=== PATIENT | female | born 1975 | race Caucasian/White ===

== ENCOUNTER → 2016-12-30 | Outpatient (CLI) | payer BC ==
[~2016-12-30] MED LIST: EPP3/2 IM; LEVO125T72 PO
--- NOTE | 2016-12-30 16:57 | MAMMOGRAPHY REPORT ---
BILATERAL DIGITAL SCREENING MAMMOGRAM TOMOSYNTHESIS WITH CAD: 12/30/2016 CLINICAL HISTORY: Routine screening. Patient has no complaints. TECHNIQUE: Breast tomosynthesis in addition to standard 2D mammography was performed. Current study was also evaluated with a Computer Aided Detection (CAD) system. COMPARISON: Comparison is made to exams dated: 12/26/2015 mammogram - [facility] an d 07/24/2008. BREAST COMPOSITION: The tissue of both breasts is heterogeneously dense, which may obscure small ma sses. FINDINGS: No suspicious masses, calcifications, or areas of architectural distortion are noted in e ither breast. There has been no significant interval change compared to prior exams. IMPRESSION: ACR BI-RADS CATEGORY 1: NEGATIVE There is no mammographic evidence of malignancy. A 1 year screening mammogram is recommended. The p atient will receive written notification of the results. Approximately 10% of breast cancers are not detected with mammography. A negative mammographic repor t should not delay biopsy if a clinically suggestive mass is present. Melissa Carbajal M.D. ah/:12/30/2016 16:33:46 Electrical Construction Project Manager: Jahaira TATE(R)(Nicolas), [facility] letter sent: Normal 1/2 BI-RADS Code: ACR BI-RADS Category 1: Negative
== END | disposition home or self-care (01) ==
LOC: C.MAMM 11:26
PROVIDERS: ATTEND Family Medicine
DX: Z12.31 Encounter for screening mammogram for malignant neoplasm of breast (principal)

== ENCOUNTER → 2017-01-13 | Outpatient (CLI) | payer BC ==
--- NOTE | 2017-01-13 09:31 | DIAGNOSTIC IMAGING REPORT ---
ULTRASOUND KIDNEYS AND BLADDER CLINICAL HISTORY: Dorsalgia. Low back pain. COMPARISON STUDY: No priors. TECHNIQUE: Real-time, grayscale, and color flow sonography of the kidneys and bladder is performed. Images are reviewed in the transverse and longitudinal planes. FINDINGS: Kidneys: The kidneys are normal in size and echotexture. The right kidney measures 9.8 x 3.8 x 4.1 cm and the left kidney measures 9.9 x 5.3 x 4.8 cm. The left kidney is suboptimally visualized due to poor acoustic window. There is no hydronephrosis. A 6 mm nonobstructing calculus is suspected in the right lower pole. No left renal calculi are visualized. There is no sonographic evidence of contour deforming renal mass lesion. No perinephric fluid is identified. Bladder: The bladder is normal in appearance. Bilateral ureteral jets were seen. IMPRESSION: 1. The kidneys are normal in size and without hydronephrosis. 2. Suspect a nonobstructing right renal calculus. 3. The bladder was normal as visualized. Both ureteral jets were seen. Electronically signed by: Jose Hope M.D. 01/13/2017 9:29 AM Dictated Date/Time: 01/13/2017 9:28 AM
== END | disposition home or self-care (01) ==
LOC: C.ULTRBC 08:57
PROVIDERS: ATTEND Nurse Practitioner Family
DX: M54.5 Low back pain (principal)

== ENCOUNTER → 2017-01-14 | Outpatient (CLI) | payer BC ==
--- NOTE | 2017-01-14 10:56 | DIAGNOSTIC IMAGING REPORT ---
CT SCAN OF THE ABDOMEN AND PELVIS WITHOUT IV CONTRAST CLINICAL HISTORY: Left flank pain. COMPARISON STUDY: Renal ultrasound dated 01/13/2017. TECHNIQUE: CT scan of the abdomen and pelvis is performed from the lung bases to the proximal femora. Images are reviewed in the axial, sagittal, and coronal planes. IV contrast was not administered for this examination. Automated dose control exposure was utilized. CT DOSE: 386.02 mGy.cm FINDINGS: Lung bases: The heart is normal in size and without pericardial effusion. The lung bases are clear. Liver: The unenhanced liver is normal in size, contour, and attenuation. There is no intrahepatic biliary ductal dilatation. Gallbladder: Unremarkable. Spleen: Normal in size and attenuation. Pancreas: Unremarkable. Adrenal glands: Unremarkable. Kidneys: The unenhanced kidneys are normal in size and without hydronephrosis. There is a punctate nonobstructing calculus in the left lower pole. A 5 mm nonobstructing calculus is seen in the right lower pole. No ureteral calculus is identified. There is no evidence of contour deforming renal mass lesion. Abdominal vasculature: The abdominal aorta is normal in course and caliber. Bowel: The small bowel and colon are normal in course and caliber. The appendix is well-visualized and normal. Peritoneum: There is no intraperitoneal free air or abdominal ascites. There is a fat-containing umbilical hernia. Lymphadenopathy: None. Pelvic viscera: The bladder is decompressed and not well assessed. The uterus and adnexa are normal as visualized. There are bilateral ovarian follicles. Skeletal structures: No lytic or blastic lesions are seen. A hemitransitional left lumbosacral segment is incidentally noted. IMPRESSION: 1. There are no acute infectious or inflammatory findings in the abdomen or pelvis. 2. There are small bilateral nonobstructing renal calculi as above Electronically signed by: Jose Hope M.D. 01/14/2017 10:54 AM Dictated Date/Time: 01/14/2017 10:49 AM
== END | disposition home or self-care (01) ==
LOC: C.CTS 10:38
PROVIDERS: ATTEND Urology
DX: N20.0 Calculus of kidney (principal)

== ENCOUNTER 2021-07-26 02:50 | Inpatient (IN) ==
[2021-07-26] MEDS ORDERED: ONDANSETRON INJ 2 MG/ML 2 ML VIAL IV STA ×2 (03:00→04:01)
[2021-07-26 03:22] LABS: Basophils # (auto) 0.06 K/uL (0-0.2); Basophils % (auto) 0.7 %; Eosinophils # (auto) 0.23 K/uL (0-0.5); Eosinophils % (auto) 2.6 %; Hematocrit (blood only) 44.9 % (37-47); Hemoglobin 15.1 g/dL (12.0-16.0); Immature Granulocytes # (auto) 0.03 K/uL (0.00-0.02); Immature Granulocytes % (auto) 0.3 %; Lymphocytes # (auto) 2.28 K/uL (1.2-3.4); Mean Corpuscular Hemoglobin 29.9 pg (25-34); Mean Corpuscular Hgb Conc 33.6 g/dL (32-36); Mean Corpuscular Volume 88.9 fL (80-100); Mean Platelet Volume 10.3 fL (7.4-10.4); Monocytes % (auto) 6.8 %; Neutrophils # (auto) 5.57 K/uL (1.4-6.5); Neutrophils % (auto) 63.6 %; Platelet Count 260 K/uL (130-400); RDW Coefficient of Variation 15.7 % (11.5-14.5); RDW Standard Deviation 50.9 fL (36.4-46.3); Red Blood Count 5.05 M/uL (4.2-5.4); White Blood Count 8.77 K/uL (4.8-10.8)
[2021-07-26 03:39] LABS: Appearance Urine Turbid (Clear); Bacteria Urine Automated Negative (Negative); Bilirubin Urine Negative (Negative); Blood Urine 3+ (Negative); Color Urine Red; Epithelial Cell Urine Auto >30 /lpf (0-5); Glucose Urine UA Negative (Negative); Ketones Urine Trace (Negative); Leukocyte Esterase Urine Negative (Negative); Nitrite Urine Negative (Negative); Protein Urine 2+ (Negative); RBC Urine Automated >30 /hpf (0-4); Specific Gravity Urine 1.023 (1.000-1.030); Urobilinogen Urine Negative (Negative); pH Urine 5.5 (4.5-7.5)
[2021-07-26 03:40] LABS: Albumin Level 3.7 gm/dl (3.4-5.0); BUN Creatinine Ratio 13.2 (10-20); Calcium 9.1 mg/dl (8.5-10.1); Creatinine Clr Calc Pharmacy 65.2 ml/min; Est GFR (African American) 77.3 ml/min; Est GFR (Non-African American) 66.7 ml/min; Potassium 3.6 mmol/L (3.5-5.1)
[2021-07-26 03:43] LABS: Bilirubin,Total 0.2 mg/dl (0.2-1); Globulin 3.7 gm/dl (2.5-4.0); Total Protein 7.4 gm/dl (6.4-8.2)
[2021-07-26 03:59] LABS: Calcium Oxalate Crystals Urine Present (None Prsent)
[2021-07-26 04:01] LABS: Cast Urine Automated 0 /lpf (0-5); Mucus Urine Present (None Prsent)
[2021-07-26] MEDS ORDERED: MoRPHine SULFATE 4 MG/ML 1 ML CARP\\VIAL IV PRN (04:01)
[2021-07-26] MEDS ORDERED: KETOROLAC 30 MG/ML VIAL IV STA (04:01)
[2021-07-26] MEDS ORDERED: SODIUM CHLORIDE 0.9% 1000ML 1,000 ML IV SCH ×2 (04:15→12:23)
[2021-07-26 04:20] LABS: Pregnancy Test, Urine Negative (Negative)
[2021-07-26 04:27] LABS: Thyroid Stimulating Hormone 2.11 uIu/ml (0.300-4.500)
--- NOTE | 2021-07-26 07:01 | Emergency Department Note ---
History of Present Illness General Chief complaint: Abdominal Pain Stated complaint: EXTREME CRAMPING, PAIN BELOW BELLY BUTTON Time Seen by Provider: 07/26/21 03:53 History of Present Illness Maximum Pain Intensity: 1 This is a 46-year-old female presenting to the emergency department for evaluation of extreme pain in her right side and lower abdomen. The patient states that her symptoms woke her from sleep around 1 AM. She does have vomiting because of the extreme amount of pain. The patient is usually healthy with a history of hypothyroidism. No abdominal surgical history. She has had kidney stones in the past, but this feels different. She is vaccinated against Covid. She rates her discomfort a colicky 04/29. Home Medications Medication Instructions Recorded Confirmed Type Iron Infusion 1 bag IV UD 07/26/21 07/26/21 History cephalexin 500 mg capsule 500 mg PO BID 3 Days #6 cap 07/26/21 Rx cetirizine 10 mg tablet (Zyrtec) 10 mg PO DAILY PRN 07/26/21 07/26/21 History docusate sodium 100 mg capsule 100 mg PO BID #20 cap 07/26/21 Rx (Col-Rite) geriatric [id number] 1 tab PO QAM 07/26/21 07/26/21 History levothyroxine 125 mcg tablet 125 mcg PO DAILYBB 07/26/21 07/26/21 History (Synthroid) oxybutynin chloride 5 mg 5 mg PO DAILY #30 tab 07/26/21 Rx tablet,extended release 24 hr tamsulosin 0.4 mg capsule (Flomax) 0.4 mg PO DAILY #30 cap 07/26/21 Rx Allergies Allergy/AdvReac Type Severity Reaction Status Date / Time bee venom protein (honey bee) Allergy Intermediate ANAPHYLAXIS Verified 07/26/21 07:20 Sulfa (Sulfonamide Allergy Intermediate hives Verified 07/26/21 07:20 Antibiotics) Past Med/Surg History Medical History Chronic allergic rhinitis Hypothyroid Kidney stone Surgical History No significant past surgical history Social History Smoking Status: Never smoker Second Hand Exposure: No; Hx Alcohol Use: Yes Alcohol type: wine Hx Substance Use: No Preferred Language: Kiswahili Communication Ability: Effective [employer] Required: No Beliefs That Will Affect Care: None Current Living Situation: Spouse Feels Safe at Home: Yes Assistive Devices: Glasses Review of Systems A total of 10 systems reviewed and were otherwise negative Physical Exam Vital Signs Vital Signs - 24 hr 07/26/21 02:54 07/26/21 04:42 07/26/21 06:19 Temperature 36.5 C Temperature Source Temporal Artery Scan Pulse Rate 62 Pulse Rate [Apical] Pulse Rate [Finger] 69 72 Pulse Rhythm Regular Pulse Rhythm [Apical] Pulse Rhythm [Finger] Pulse Strength Normal Pulse Strength [Finger] Respiratory Rate 18 18 18 Respiratory Effort / Characteristics Non-Labored Spontaneous Non-Labored Spontaneous Non-Labored Spontaneous Respiratory Depth Normal Normal Normal Respiratory Pattern Regular Blood Pressure [Left Arm] Blood Pressure [Right Arm] 129/84 115/74 Blood Pressure Mean [Left Arm] Blood Pressure Mean [Right Arm] 99 87 Blood Pressure Position Sitting Blood Pressure Position [Left Arm] Blood Pressure Position [Right Arm] Lying Lying Pulse Oximetry 98 99 99 Oxygen Delivery Method Room Air Room Air Room Air Oxygen Flow Rate Sepsis Recent Fever Within 48 Hours No Sepsis New/Unexplained Change in Mental Status N/A Sepsis Action Taken by Nursing No Action Required 07/26/21 07:35 07/26/21 09:30 07/26/21 11:08 Temperature 36.4 C L Temperature Source Temporal Artery Scan Pulse Rate Pulse Rate [Apical] 77 Pulse Rate [Finger] 64 70 Pulse Rhythm Pulse Rhythm [Apical] Regular Pulse Rhythm [Finger] Regular Regular Pulse Strength Pulse Strength [Finger] Normal Normal Respiratory Rate 18 18 21 Respiratory Effort / Characteristics Non-Labored Spontaneous Non-Labored Spontaneous Non-Labored Spontaneous Respiratory Depth Normal Normal Normal Respiratory Pattern Regular Regular Regular Blood Pressure [Left Arm] 107/72 Blood Pressure [Right Arm] 122/84 118/80 Blood Pressure Mean [Left Arm] 83 Blood Pressure Mean [Right Arm] 96 92 Blood Pressure Position Blood Pressure Position [Left Arm] Lying Blood Pressure Position [Right Arm] Sitting Sitting Pulse Oximetry 99 100 97 Oxygen Delivery Method Room Air Room Air Oxymask Oxygen Flow Rate 7 Sepsis Recent Fever Within 48 Hours Sepsis New/Unexplained Change in Mental Status Sepsis Action Taken by Nursing 07/26/21 11:15 07/26/21 11:25 07/26/21 11:35 Temperature 36.3 C L Temperature Source Temporal Artery Scan Pulse Rate Pulse Rate [Apical] 73 68 69 Pulse Rate [Finger] Pulse Rhythm Pulse Rhythm [Apical] Regular Regular Regular Pulse Rhythm [Finger] Pulse Strength Pulse Strength [Finger] Respiratory Rate 17 13 12 Respiratory Effort / Characteristics Non-Labored Spontaneous Non-Labored Spontaneous Non-Labored Spontaneous Respiratory Depth Normal Normal Normal Respiratory Pattern Regular Regular Regular Blood Pressure [Left Arm] 120/70 109/79 136/85 Blood Pressure [Right Arm] Blood Pressure Mean [Left Arm] 86 89 102 Blood Pressure Mean [Right Arm] Blood Pressure Position Blood Pressure Position [Left Arm] Lying Lying Lying Blood Pressure Position [Right Arm] Pulse Oximetry 97 95 99 Oxygen Delivery Method Room Air Room Air Room Air Oxygen Flow Rate Sepsis Recent Fever Within 48 Hours Sepsis New/Unexplained Change in Mental Status Sepsis Action Taken by Nursing 07/26/21 11:44 07/26/21 11:45 Temperature 36.7 C Temperature Source Oral Pulse Rate Pulse Rate [Apical] Pulse Rate [Finger] 69 Pulse Rhythm Pulse Rhythm [Apical] Pulse Rhythm [Finger] Pulse Strength Pulse Strength [Finger] Respiratory Rate 16 Respiratory Effort / Characteristics Non-Labored Spontaneous Respiratory Depth Normal Respiratory Pattern Blood Pressure [Left Arm] 112/77 Blood Pressure [Right Arm] Blood Pressure Mean [Left Arm] 88 Blood Pressure Mean [Right Arm] Blood Pressure Position Blood Pressure Position [Left Arm] Lying Blood Pressure Position [Right Arm] Pulse Oximetry 100 Oxygen Delivery Method Room Air Room Air Oxygen Flow Rate Sepsis Recent Fever Within 48 Hours Sepsis New/Unexplained Change in Mental Status Sepsis Action Taken by Nursing VITALS: Vitals are noted on the nurse's note and reviewed by myself. Vital signs stable. GENERAL: Well-developed, well-nourished, white female who appears moderately uncomfortable on exam. Patient is cooperative with the examination. HEAD: Normocephalic atraumatic. NECK: Supple without nuchal rigidity. No lymphadenopathy. No thyromegaly. Cervical spine is nontender. HEART: Regular rate and rhythm without murmurs gallops or rubs. LUNGS: Clear to auscultation bilaterally without wheezes, rales or rhonchi. No retractions or accessory muscle use. ABDOMEN: Positive normal bowel sounds x 4. Soft, nontender, without masses or organomegaly. No guarding or rebound tenderness. No CVA tenderness. MUSCULOSKELETAL: No muscle atrophy, erythema, or edema noted. Full range of motion in all extremities. NEURO: Patient was alert and oriented to person place and time. CN II through XII grossly intact. Course Administered Medications Discontinued Medications Diatrizoate Meglumine (Diatrizoate Meglumine 30% 100ml Vial) 10 ml INSTIL UD PRN PRN Reason: radiology Stop: 07/30/21 11:00 Last Admin: 07/26/21 11:02 Dose: 10 ml Documented by: [id number] Sodium Chloride (Nss 1000ml) 1,000 mls @ 999 mls/hr IV .Q1H1M TARIQ Stop: 07/26/21 05:15 Last Infusion: 07/26/21 05:28 Dose: 0 mls/hr Documented by: [id number] Admin: 07/26/21 04:13 Dose: 999 mls/hr Documented by: [id number] Cefazolin Sodium (Ancef 1000mg) 1,000 mg in 7.5 mls @ 2.5 mls/min IV PREOP ONE Stop: 07/26/21 09:14 Last Admin: 07/26/21 09:44 Dose: 2.5 mls/min Documented by: [id number] Sodium Chloride (Nss 1000ml) 1,000 mls @ 200 mls/hr IV .Q5H TARIQ Stop: 08/25/21 12:22 Last Admin: 07/26/21 13:08 Dose: 200 mls/hr Documented by: [id number] Ketorolac Tromethamine (Ketorolac 30 Mg/Ml Vial) 30 mg IV NOW STA Stop: 07/26/21 04:02 Last Admin: 07/26/21 04:14 Dose: 30 mg Documented by: [id number] Morphine Sulfate (Morphine Sulfate 4 Mg/Ml 1 Ml Carp\Vial) 4 mg IV Q30M PRN PRN Reason: Pain Stop: 08/09/21 04:00 Last Admin: 07/26/21 04:14 Dose: 4 mg Documented by: [id number] Ondansetron HCl (Ondansetron Inj 2 Mg/Ml 2 Ml Vial) 4 mg IV NOW STA Stop: 07/26/21 03:01 Last Admin: 07/26/21 06:22 Dose: Not Given Documented by: [id number] Ondansetron HCl (Ondansetron Inj 2 Mg/Ml 2 Ml Vial) 4 mg IV NOW STA Stop: 07/26/21 04:02 Last Admin: 07/26/21 04:13 Dose: 4 mg Documented by: [id number] Scopolamine (Scopolamine 1 Mg Tdsy) 1 mg TD ONE ONE Stop: 07/26/21 11:18 Last Admin: 07/26/21 13:06 Dose: Not Given Documented by: [id number] Tamsulosin HCl (Tamsulosin Hcl 0.4 Mg Cap) 0.4 mg PO 1245 ONE Stop: 07/26/21 12:46 Last Admin: 07/26/21 13:08 Dose: 0.4 mg Documented by: [id number] Medical Decision Making Differential Diagnosis Differential diagnosis: Etiologies such as biliary colic, cholecystitis, hepatitis, pancreatitis, cardiac disease, pancreatitis, gastritis, peptic ulcer disease, appendicitis, cystitis, diverticulitis, mesenteric ischemia, inflammatory bowel disease, ileus, bowel obstruction, testicular/adnexal torsion, aortic pathology, shingles, as well as others were considered Laboratory Data Result diagrams: 07/26/21 03:05 07/26/21 03:05 Lab Results 07/26/21 07/26/21 07/26/21 Range/Units 03:05 03:05 03:13 WBC 8.77 (4.8-10.8) K/uL RBC 5.05 (4.2-5.4) M/uL Hgb 15.1 (12.0-16.0) g/dL Hct 44.9 (37-47) % MCV 88.9 (80-100) fL MCH 29.9 (25-34) pg MCHC 33.6 (32-36) g/dL RDW Std Deviation 50.9 H (36.4-46.3) fL RDW Coeff of Shashank 15.7 H (11.5-14.5) % Plt Count 260 (130-400) K/uL MPV 10.3 (7.4-10.4) fL Immature Gran % (Auto) 0.3 % Neut % (Auto) 63.6 % Lymph % (Auto) 26.0 % [place] % (Auto) 6.8 % Eos % (Auto) 2.6 % Baso % (Auto) 0.7 % Neut # (Auto) 5.57 (1.4-6.5) K/uL Lymph # (Auto) 2.28 (1.2-3.4) K/uL [place] # (Auto) 0.60 H (0.11-0.59) K/uL Eos # (Auto) 0.23 (0-0.5) K/uL Baso # (Auto) 0.06 (0-0.2) K/uL Immature Gran # (Auto) 0.03 H (0.00-0.02) K/uL Sodium 138 (136-145) mmol/L Potassium 3.6 (3.5-5.1) mmol/L Chloride 108 H (98-107) mmol/L Carbon Dioxide 23 (21-32) mmol/L Anion Gap 7.0 (3-11) BUN 13 (7-18) mg/dl Creatinine 1.01 (0.6-1.2) mg/dl Est Cr Clr Drug Dosing 65.2 ml/min Est GFR ( Amer) 77.3 ml/min Est GFR (Non-Af Amer) 66.7 ml/min BUN/Creatinine Ratio 13.2 (10-20) Glucose 120 H (70-99) mg/dl Calcium 9.1 (8.5-10.1) mg/dl Total Bilirubin 0.2 (0.2-1) mg/dl AST 19 (15-37) U/L ALT 37 (12-78) U/L Alkaline Phosphatase 53 (45-117) U/L Total Protein 7.4 (6.4-8.2) gm/dl Albumin 3.7 (3.4-5.0) gm/dl Globulin 3.7 (2.5-4.0) gm/dl Albumin/Globulin Ratio 1.0 (0.9-2) Lipase 158 (73-393) U/L TSH 2.110 (0.300-4.500) uIu/ml Urine Color Red Urine Appearance Turbid A (Clear) Urine pH 5.5 (4.5-7.5) Ur Specific [place] 1.023 (1.000-1.030) Urine Protein 2+ H (Negative) Urine Glucose (UA) Negative (Negative) Urine Ketones Trace H (Negative) Urine Blood 3+ H (Negative) Urine Nitrite Negative (Negative) Urine Bilirubin Negative (Negative) Urine Urobilinogen Negative (Negative) Ur Leukocyte Esterase Negative (Negative) Urine WBC (Auto) 10-30 H (0-5) /hpf Urine RBC (Auto) >30 H (0-4) /hpf U Hyaline Cast (Auto) 0 (0-5) /lpf U Epithel Cells (Auto) >30 H (0-5) /lpf Urine Bacteria (Auto) Negative (Negative) Calcium Oxalate Crystal Present A (None Prsent) Urine Mucus Present A (None Prsent) Urine Test (Negative) COVID-19 Eval Order SARS-CoV-2 (PCR) (Negative) 07/26/21 07/26/21 07/26/21 Range/Units 03:13 06:45 06:45 WBC (4.8-10.8) K/uL RBC (4.2-5.4) M/uL Hgb (12.0-16.0) g/dL Hct (37-47) % MCV (80-100) fL MCH (25-34) pg MCHC (32-36) g/dL RDW Std Deviation (36.4-46.3) fL RDW Coeff of Shashank (11.5-14.5) % Plt Count (130-400) K/uL MPV (7.4-10.4) fL Immature Gran % (Auto) % Neut % (Auto) % Lymph % (Auto) % [place] % (Auto) % Eos % (Auto) % Baso % (Auto) % Neut # (Auto) (1.4-6.5) K/uL Lymph # (Auto) (1.2-3.4) K/uL [place] # (Auto) (0.11-0.59) K/uL Eos # (Auto) (0-0.5) K/uL Baso # (Auto) (0-0.2) K/uL Immature Gran # (Auto) (0.00-0.02) K/uL Sodium (136-145) mmol/L Potassium (3.5-5.1) mmol/L Chloride (98-107) mmol/L Carbon Dioxide (21-32) mmol/L Anion Gap (3-11) BUN (7-18) mg/dl Creatinine (0.6-1.2) mg/dl Est Cr Clr Drug Dosing ml/min Est GFR ( Amer) ml/min Est GFR (Non-Af Amer) ml/min BUN/Creatinine Ratio (10-20) Glucose (70-99) mg/dl Calcium (8.5-10.1) mg/dl Total Bilirubin (0.2-1) mg/dl AST (15-37) U/L ALT (12-78) U/L Alkaline Phosphatase (45-117) U/L Total Protein (6.4-8.2) gm/dl Albumin (3.4-5.0) gm/dl Globulin (2.5-4.0) gm/dl Albumin/Globulin Ratio (0.9-2) Lipase (73-393) U/L TSH (0.300-4.500) uIu/ml Urine Color Urine Appearance (Clear) Urine pH (4.5-7.5) Ur Specific [place] (1.000-1.030) Urine Protein (Negative) Urine Glucose (UA) (Negative) Urine Ketones (Negative) Urine Blood (Negative) Urine Nitrite (Negative) Urine Bilirubin (Negative) Urine Urobilinogen (Negative) Ur Leukocyte Esterase (Negative) Urine WBC (Auto) (0-5) /hpf Urine RBC (Auto) (0-4) /hpf U Hyaline Cast (Auto) (0-5) /lpf U Epithel Cells (Auto) (0-5) /lpf Urine Bacteria (Auto) (Negative) Calcium Oxalate Crystal (None Prsent) Urine Mucus (None Prsent) Urine Test Negative (Negative) COVID-19 Eval Order Covid19 at [facility] SARS-CoV-2 (PCR) NEGATIVE (Negative) MDM Narrative Physical exam and history were performed. Nursing notes, EMR, and Medication List were personally reviewed. Patient appears to have very low abdominal pain with nausea and vomiting. The patient is quite uncomfortable on presentation. Urine was immediately available for review and may be consistent with kidney stone. IV access was established and labs were obtained. The patient was given IV Toradol, IV morphine, and IV Zofran. She was hydrated with normal saline and sent to CT scan for further evaluation. The patient's blood work is as above and was reviewed. She does not have a significantly elevated white blood cell count, gross anemia, bandemia, or significant electrolyte imbalance. Lipase and transaminases are not diagnostic. TSH shows euthyroid state. Urine is with blood, white cells, calcium oxalate, and mucus. Urine does not appear distinctly infectious. She is not . CT scan was reviewed by myself and radiology, and she does appear to have an obstructing 8 mm right ureteral calculi with hydronephrosis. This would clinically correlate with her symptoms. Covid was performed and negative. The case was discussed with the on-call hospitalist team, who will evaluate the patient here in the ER for further care management. Please see their dictation for further patient course, plan, and disposition. The chart was completed utilizing [employer] Speech Voice Recognition Software. Grammatical errors, random word insertions, pronoun errors, and incomplete sentences are an occasional consequence of this system due to software limitations, ambient noise, and hardware issues. Any formal questions or concerns about the content, text, or information contained within the body of this dictation should be directly addressed to the provider for clarification. . Impression & Plan Calculus of right ureter, Abdominal pain, Vomiting Discharge Plan Visit Data Chief Complaint: Abdominal Pain Stated Complaint: EXTREME CRAMPING, PAIN BELOW BELLY BUTTON ED Provider: Cherie Johnson ED Midlevel Provider: Franko Olivia Discharge Problem: Calculus of right ureter, Abdominal pain, Vomiting Patient Disposition: Home - Self-Care Discharge Instructions Interventions: ED Discharge Assessment Last Done: 07/26/21 10:00
--- NOTE | 2021-07-26 07:14 | CT Scan Report ---
ABDOMEN AND PELVIS CT WITHOUT CONTRAST CT DOSE: 457.52 mGy.cm HISTORY: Acute right-sided flank pain low abd pain TECHNIQUE: Multiaxial CT images of the abdomen and pelvis were performed without contrast. A dose lo wering technique was utilized adhering to the principles of ALARA. COMPARISON STUDY: CT abdomen and pelvis 01/14/2017 FINDINGS: The imaged inferior cardiac chambers are unremarkable. Clear lung bases. No pneumatosis or pneumoperitoneum. The unenhanced spleen, pancreas, adrenal glands, gallbladder and liver appear unrem arkable. Unremarkable left kidney. Moderate right-sided hydroureteronephrosis secondary to an obstruc ting 8 x 5 x 8 mm calculus of the right ureter at the level of S1. Decompressed urinary bladder. Unre markable uterus and adnexa. Aorta and IVC are unremarkable. No bowel obstruction or bowel wall thickening. Mild fecal retention. Normal appendix. Tiny fat filled periumbilical hernia. Unremarkable soft tissues. No acute fracture. IMPRESSION: 1. Moderate right-sided hydroureteronephrosis secondary to an obstructing 8 mm calculus of the right ureter at the level of S1. 2. No bowel obstruction or bowel wall thickening. Normal appendix. ACT 112: Negative or not required by law. The above report was generated using voice recognition software. It may contain grammatical, syntax o r spelling errors. Electronically signed by: Akhil Montgomery M.D. 07/26/2021 7:13 AM
--- NOTE | 2021-07-26 07:32 | Urology Consultation ---
Date of Consultation July 26, 2021 Assessment & Plan (1) Kidney stone: Patient is being admitted on the hospitalist service and we recommend proceeding as follows: Provide analgesics Provide antiemetics Provide IV fluid for hydration Keep the patient n.p.o. until seen by Dr. Paulson Consider adding Flomax for expulsive properties I discussed with the patient we can give her a trial of spontaneously passing the stone. If this is unsuccessful she may require cystoscopic intervention. Additional recommendations be forthcoming based on her clinical course as it unfolds Supervising Physician Co-Signing Physician Notes Discussed patient with LISS. Agree with plan. Saw patient personally. Counseled her on options including medical expulsive therapy versus stent placement today. Due to discomfort, patient would prefer stent. Consent obtained and patient marked. We will add on for nonemergent right ureteral stent placement today. Patient can likely go home afterwards and I will set up follow-up for definitive stone treatment. We will try to get this done before her planned robotic hysterectomy in early August. History of Present Illness Reason for Consultation: Nephrolithiasis History of Present Illness This 46-year-old female who developed right-sided flank pain earlier this morning which radiated to the front of her abdomen. She had associated nausea vomiting. She also noted some hematuria. She denies any dysuria urinary frequency. She denies any fevers, shakes, chills. Patient says that she has had a kidney stone in the past but it passed on its own and did not require any surgical intervention. Because the pain was unremitting she presented to the emergency department Patient did have labs and imaging which I dependently reviewed. CT scan of the abdomen and pelvis showed moderate right-sided hydronephrosis with an 8 mm obstructing kidney stone. Labs include a CBC her white blood cell count, hemoglobin, hematocrit, and platelet count are all within normal range. A chemistry profile showed sodium, potassium, BUN, and creatinine were all within normal range. Urinalysis showed 10-30 white blood cells per high-power field but was negative for leukocyte esterase and nitrites. There is also no bacteria noted. A Covid test has been performed and is pending. A test is noted to be negative. In the emergency department she was resting comfortably in bed at the time of my interview and was in no distress. Allergies Allergy/AdvReac Type Severity Reaction Status Date / Time bee venom protein (honey bee) Allergy Intermediate ANAPHYLAXIS Verified 07/26/21 07:20 Sulfa (Sulfonamide Allergy Intermediate hives Verified 07/26/21 07:20 Antibiotics) Home Medications Medication Instructions Recorded Confirmed Type Iron Infusion 1 bag IV UD 07/26/21 07/26/21 History cetirizine 10 mg tablet (Zyrtec) 10 mg PO DAILY PRN 07/26/21 07/26/21 History geriatric ahszpazg-sxjo-mzmi 1 tab PO QAM 07/26/21 07/26/21 History levothyroxine 125 mcg tablet 125 mcg PO DAILYBB 07/26/21 07/26/21 History (Synthroid) Patient History Medical History Kidney stone Surgical History No significant past surgical history Social History Smoking Status: Never smoker Preferred Language: [place]ian Feels Safe at Home: Yes Review of Systems Constitutional: no fever and no chills Eyes: no diplopia Ear, Nose, Mouth, Throat: no ear pain Respiratory: no cough and no dyspnea Cardiovascular: no chest pain Gastrointestinal: + nausea and + vomiting Genitourinary: + flank pain (Right sided) Musculoskeletal: + back pain (Right-sided flank pain) Integumentary: no rash Neurologic: no localized weakness Physical Exam Constitutional: well developed and well nourished; no acute distress Eyes: Wears glasses ENMT: Ears: no hearing impairment Neck: trachea midline Respiratory: normal respiratory effort; no respiratory distress and no labored breathing Cardiovascular: Rate/Rhythm: regular rate and regular rhythm Gastrointestinal (Abdomen): Soft, nontender, nondistended. No pain with palpation Musculoskeletal: No calf tenderness Skin: no rashes Neurologic: moves all extremities Psychiatric: A+Ox3, euthymic affect Results & Data ([facility]) Vital Signs (Past 12 Hours) Vital Signs Temp Pulse Pulse Resp BP Pulse Ox 07/26/21 06:19 72 18 115/74 99 07/26/21 04:42 69 18 129/84 99 07/26/21 02:54 36.5 C 62 18 98 PG Care Time/CCT Total # of Minutes Spent Total Time Spent with Patient: Total time spent is greater than 50% in coordination of care (as documented) at patient's floor/unit and/or counseling patient: Coding Level of Care Code 61133 Inpt Consult Level 5 Diagnoses Kidney stone N20.0
[2021-07-26] MEDS ORDERED: ceFAZolin 1000MG 1,000 MG/7.5 ML SYR IV ONE (09:12)
[2021-07-26] MEDS ORDERED: ePHEDrine sulfate 50 MG/ML AMP IV PRN (09:49)
[2021-07-26] MEDS ORDERED: MEPERIDINE HCL 25 MG/ML CARP/VIAL IV PRN (09:49)
[2021-07-26] MEDS ORDERED: ATROPINE SULFATE 0.1 MG/ML 10ML SYR IV PRN (09:49)
[2021-07-26] MEDS ORDERED: HYDROmorphone INJ 1 MG/ML SYRINGE IV PRN ×2 (09:49→12:23)
[2021-07-26] MEDS ORDERED: LABETALOL HCL IV 5 MG/ML 20ML IV PRN (09:49)
[2021-07-26] MEDS ORDERED: ONDANSETRON INJ 2 MG/ML 2 ML VIAL IV PRN ×3 (09:49→12:23)
[2021-07-26] MEDS ORDERED: fentaNYL citrate 100 MCG/2 ML VIAL IV PRN (09:49)
[2021-07-26] MEDS ORDERED: PHENYLEPHRINE 100MCG/ML 5ML SYR IV PRN (09:49)
--- NOTE | 2021-07-26 09:57 | Anesthesiology Consultation ---
Date of Service July 26, 2021 Assessment & Plan (1) Encounter for pre-operative examination: Chart Review Chart Review: Acceptable Risk for Surgery and Patient NOT seen in Pre Admission Testing Consults Requested none History Surgery Operation Date: 07/26/21 13:00 Proposed Procedures p Cystoscopy Retrograde(Right) - Phan Paulson MD s Ureteral Stent Insertion/Removal(Right) - Phan Paulson MD Height/Weight Height: 5 ft 6 in Weight: 65.9 kg Allergies Allergy/AdvReac Type Severity Reaction Status Date / Time bee venom protein (honey bee) Allergy Intermediate ANAPHYLAXIS Verified 07/26/21 07:20 Sulfa (Sulfonamide Allergy Intermediate hives Verified 07/26/21 07:20 Antibiotics) Medications Home Medications Medication Instructions Recorded Confirmed Last Taken Iron Infusion 1 bag IV UD 07/26/21 07/26/21 06/04/21 cetirizine 10 mg tablet (Zyrtec) 10 mg PO DAILY PRN 07/26/21 07/26/21 07/25/21 geriatric bnxcirqq-xmmy-dxzl 1 tab PO QAM 07/26/21 07/26/21 07/25/21 levothyroxine 125 mcg tablet 125 mcg PO DAILYBB 07/26/21 07/26/21 07/25/21 (Synthroid) Active Medications Generic Name Dose Route Start Last Admin Trade Name Freq PRN Reason Stop Dose Admin Morphine Sulfate 4 mg 07/26/21 04:01 07/26/21 04:14 Morphine Sulfate 4 Mg/Ml 1 Ml Carp\Vial IV 08/09/21 04:00 4 mg Q30M PRN Administration Pain Past Medical History Medical History Chronic allergic rhinitis Hypothyroid Kidney stone Past Surgical History Surgical History No significant past surgical history Social History Smoking Status: Never smoker Physical Exam Vital Signs Last Vital Signs Temp 36.5 C 07/26/21 02:54 Pulse 70 07/26/21 09:30 Resp 18 07/26/21 09:30 BP 118/80 07/26/21 09:30 Pulse Ox 100 07/26/21 09:30 Testing Laboratory Results 07/26/21 03:05 07/26/21 03:05 Urine Color Red 07/26/21 03:13 Urine Appearance Turbid (Clear) A 07/26/21 03:13 Urine pH 5.5 (4.5-7.5) 07/26/21 03:13 Ur Specific [place] 1.023 (1.000-1.030) 07/26/21 03:13 Urine Protein 2+ (Negative) H 07/26/21 03:13 Urine Glucose (UA) Negative (Negative) 07/26/21 03:13 Urine Ketones Trace (Negative) H 07/26/21 03:13 Urine Nitrite Negative (Negative) 07/26/21 03:13 Ur Leukocyte Esterase Negative (Negative) 07/26/21 03:13 Urine WBC (Auto) 10-30 /hpf (0-5) H 07/26/21 03:13 Urine RBC (Auto) >30 /hpf (0-4) H 07/26/21 03:13 U Hyaline Cast (Auto) 0 /lpf (0-5) 07/26/21 03:13 U Epithel Cells (Auto) >30 /lpf (0-5) H 07/26/21 03:13 Urine Bacteria (Auto) Negative (Negative) 07/26/21 03:13 Urine Test Negative (Negative) 07/26/21 03:13 07/26/21 03:13 Urine Test Negative Other Testing ABDOMEN AND PELVIS CT WITHOUT CONTRAST CT DOSE: 457.52 mGy.cm HISTORY: Acute right-sided flank pain low abd pain TECHNIQUE: Multiaxial CT images of the abdomen and pelvis were performed without contrast. A dose lowering technique was utilized adhering to the principles of ALARA. COMPARISON STUDY: CT abdomen and pelvis 01/14/2017 FINDINGS: The imaged inferior cardiac chambers are unremarkable. Clear lung bases. No pneumatosis or pneumoperitoneum. The unenhanced spleen, pancreas, adrenal glands, gallbladder and liver appear unremarkable. Unremarkable left kidney. Moderate right-sided hydroureteronephrosis secondary to an obstructing 8 x 5 x 8 mm calculus of the right ureter at the level of S1. Decompressed urinary bladder. Unremarkable uterus and adnexa. Aorta and IVC are unremarkable. No bowel obstruction or bowel wall thickening. Mild fecal retention. Normal appendix. Tiny fat filled periumbilical hernia. Unremarkable soft tissues. No acute fracture. IMPRESSION: 1. Moderate right-sided hydroureteronephrosis secondary to an obstructing 8 mm calculus of the right ureter at the level of S1. 2. No bowel obstruction or bowel wall thickening. Normal appendix. ACT 112: Negative or not required by law. The above report was generated using voice recognition software. It may contain grammatical, syntax or spelling errors. Electronically signed by: Akhil Montgomery M.D. 07/26/2021 7:13 AM Dictated:07/26/2109 Transcribed: 07/26/21 0709
[2021-07-26] MEDS ORDERED: MIDAZOLAM HCL 1 MG/ML 2ML VIAL ONE ×2 (10:24→10:32)
[2021-07-26] MEDS ORDERED: fentaNYL citrate 100 MCG/2 ML VIAL ONE (10:25)
[2021-07-26] MEDS ORDERED: PROPOFOL IV EMULSION 10 MG/ML 20 ML VIAL IV ONE ×3 (10:29→10:52)
[2021-07-26] MEDS ORDERED: LIDOCAINE 2% 2 ML VIAL/AMP(20MG/ML) INFIL ONE (10:29)
[2021-07-26] MEDS ORDERED: DEXAMETHASONE SOD INJ 4 MG/ML VIAL ONE ×2 (10:31→10:47)
[2021-07-26] MEDS ORDERED: ONDANSETRON INJ 2 MG/ML 2 ML VIAL ONE (10:31)
[2021-07-26] MEDS ORDERED: SCOPOLAMINE 1 MG TDSY TD ONE ×2 (10:34→11:17)
[2021-07-26] MEDS ORDERED: FAMOTIDINE/PF 20 MG/2 ML VIAL IV ONE (10:37)
[2021-07-26] MEDS ORDERED: METOCLOPRAMIDE HCL INJ 5 MG/ML 2 ML VIAL ONE (10:47)
[2021-07-26] MEDS ORDERED: DIATRIZOATE MEGLUMINE 30% 100ML VIAL INSTIL PRN (11:01)
--- NOTE | 2021-07-26 11:01 | History & Physical Report ---
Date of Service July 26, 2021 Assessment & Plan (1) Kidney stone: Plan: right renal colic with intractable pain, size of stone makes it unlikely it will pass, for or today with Dr Lorene langley, flomax parenteal pain control (2) Hypothyroid: Plan: hold synthoroid while npo History of Present Illness Primary Care Provider: Annamarie Mckay DO 46-year-old female presenting to the emergency department for evaluation of extreme pain in her right side and lower abdomen. The patient states that her symptoms woke her from sleep around 1 AM. She does have vomiting because of the extreme amount of pain. The patient is usually healthy with a history of hypothyroidism. No abdominal surgical history. She has had kidney stones in the past, but this feels different. She is vaccinated against Covid. She rates her discomfort a colicky 04/29. Pt is evaluated by Dr Paulson in the ER and will take to cystoscopy 07/26/21 Allergies Allergy/AdvReac Type Severity Reaction Status Date / Time bee venom protein (honey bee) Allergy Intermediate ANAPHYLAXIS Verified 07/26/21 07:20 Sulfa (Sulfonamide Allergy Intermediate hives Verified 07/26/21 07:20 Antibiotics) Home Medications Medication Instructions Recorded Confirmed Type Iron Infusion 1 bag IV UD 07/26/21 07/26/21 History cephalexin 500 mg capsule 500 mg PO BID 3 Days #6 cap 07/26/21 Rx cetirizine 10 mg tablet (Zyrtec) 10 mg PO DAILY PRN 07/26/21 07/26/21 History docusate sodium 100 mg capsule 100 mg PO BID #20 cap 07/26/21 Rx (Col-[facility]) geriatric dwpuxhze-lytp-lodw 1 tab PO QAM 07/26/21 07/26/21 History levothyroxine 125 mcg tablet 125 mcg PO DAILYBB 07/26/21 07/26/21 History (Synthroid) oxybutynin chloride 5 mg 5 mg PO DAILY #30 tab 07/26/21 Rx tablet,extended release 24 hr tamsulosin 0.4 mg capsule (Flomax) 0.4 mg PO DAILY #30 cap 07/26/21 Rx Past Med/Surg History Medical History Chronic allergic rhinitis Hypothyroid Kidney stone Surgical History No significant past surgical history Social History Smoking Status: Never smoker Second Hand Exposure: No; Do You Dip or Chew Tobacco: No; Tobacco Cessation Education Requested by Patient: No Hx Alcohol Use: Yes Alcohol type: wine Hx Substance Use: No Preferred Language: French Communication Ability: Effective [employer]otive Customer Experience Advisor Required: No Beliefs That Will Affect Care: None Current Living Situation: Spouse Feels Safe at Home: Yes Safety Concerns: Feels Safe At This Time Assistive Devices: Glasses Review of Systems Review of Systems: Mild distress and fatigue no headache, no visual changes no speech or swallowing issues no chest pain, pressure or palpitations no shortness of breath, cough or wheezes abdominal pain, mild nausea no vomiting no dysuria, hematuria or frequency no focal joint pain or swelling no back pain, mild right CVA tenderness no bruising, bleeding or rashes no focal signs of weakness or numbness or altered sensation no complaints of anxiety or depression.. Physical Exam Physical Exam: The patient appeared well nourished and normally developed. Vital signs as documented. Head exam is normocephalic atraumatic Neck is without JVD, thyromegaly, or carotid bruits. Lungs are clear to auscultation, no focal loss of breath sounds Cardiac exam, Rhythm is regular.. No murmurs, rubs or gallops. Abdominal exam reveals normal bowel sounds, soft mildly tender right side Extremities are nonedematous and both pedal pulses are present Neurologic exam is alert and oriented, no focal loss of strength or sensation Skin is without bruises or rashes Psychologically is without concerns for anxiety or depression Results & Data Results & Data ([facility]) Vital Signs (Past 12 Hours) Vital Signs Temp Pulse Pulse Resp BP Pulse Ox 07/26/21 09:30 70 18 118/80 100 07/26/21 07:35 64 18 122/84 99 07/26/21 06:19 72 18 115/74 99 07/26/21 04:42 69 18 129/84 99 07/26/21 02:54 97.7 F 62 18 98 Code Status & VTE Plan VTE Prophylaxis Plan VTE Prophylaxis will be ordered: Yes PG Care Time/CCT Total # of Minutes Spent Total Time Spent with Patient: Total time spent is greater than 50% in coordination of care (as documented) at patient's floor/unit and/or counseling patient: Coding Level of Care Code 40233 Initial Inpt Care Lvl 2 Diagnoses Kidney stone N20.0 Hypothyroid E03.9
--- NOTE | 2021-07-26 11:02 | Operative Report ---
PG Post Operative Report Pre & Post Diagnosis Operation Date: 07/26/21 13:00 Pre-Op Diagnosis: Right sided flank pain Post-Op Diagnosis: Right sided flank pain I identified the patient and participated in the time-out.: Yes Procedure Operation Date: 07/26/21 13:00 Actual Procedures p Cystoscopy Right Retrograde with radiographic interpretation (Right) - Phan Paulson MD s Right Ureteral Stent Insertion(Right) - Phan Paulson MD Surgeon Phan Paulson MD Wellness Coordinator None Estimated Blood Loss 0 Findings Consistent with Post-Op Diagnosis 1. Normal urethra and bladder. 2. Right retrograde pyelogram showing moderate hydronephrosis 3. Right ureteral stent in appropriate position Specimens None Drains 6 Singaporean by 26 cm right ureteral stent Anesthesia Type MAC Complications None Disposition Accompanied Patient To Recovery: No Disposition: Recovery Room Indications 46-year-old female with an 8 mm right mid ureteral calculus. No concerns for infection or VAHE, however due to pain control patient opted for right ureteral stent placement. Risks and benefits were discussed and she signed consent. Description of Procedure After informed consent was obtained, the patient was transported operative suite. MAC anesthesia was induced. The patient was placed in dorsolithotomy position prepped and draped in a sterile fashion. They received preoperative ancef for antibiotic prophylaxis. An appropriate surgical timeout was performed. A 22 Singaporean rigid scope was inserted per urethra into the bladder. Junior cystoscopy revealed no stones or lesions. I turned my attention the right ureteral orifice and intubated this with a 5 Singaporean open-ended catheter. A right retrograde pyelogram was shot which showed moderate hydronephrosis. A sensor wire was advanced into the kidney and confirmed fluoroscopically. A 6 Singaporean by 26 cm right ureteral stent was deployed with a good proximal coil in the renal pelvis and a good distal coil noted in the bladder, confirmed fluoroscopically and under direct visualization, respectively. The bladder was emptied and the scope was removed. This concluded the end of the case. All counts were correct at the end of the case. I was present, scrubbed, and actively participated for the entire to the procedure. I attest to the content of the Intraoperative Record and any orders documented therein. Any exceptions are noted below.
--- NOTE | 2021-07-26 11:02 | Post Operative Brief Note ---
PG Immediate Post Op with CF Date of Surgery July 26, 2021 Pre & Post Diagnosis Operation Date: 07/26/21 13:00 Pre-Op Diagnosis: Right sided flank pain Post-Op Diagnosis: Right sided flank pain I identified the patient and participated in the time-out.: Yes Procedure Operation Date: 07/26/21 13:00 Actual Procedures p Cystoscopy Right Retrograde(Right) - Phan Paulson MD s Right Ureteral Stent Insertion(Right) - Phan Paulson MD Surgeon Phan Paulson MD Electrical Discharge Machine Operator None Estimated Blood Loss 0 Findings Consistent with Post-Op Diagnosis Stent in good position Drains Other (6x26 R stent ) Complications None Disposition Accompanied Patient To Recovery: No Disposition: Recovery Room Overlapping Procedure I was present for: the critical portions of procedure.
--- NOTE | 2021-07-26 11:11 | Fluoroscopy Report ---
FL retrograde includes kub HISTORY: 46 years-old Female CYSTO STENT/ RT right-sided cystourethrogram COMPARISON: CT abdomen and pelvis 07/26/2021 TECHNIQUE: 5 spot fluoroscopic images of the abdomen were obtained utilizing 25.2 seconds fluoroscopy time FINDINGS: Retrograde injection of contrast into the right ureter and renal collecting system demonstrates persi stent hydroureteronephrosis. Subsequent images demonstrate deployment of a right ureteral stent with proximal portion appearing to be in satisfactory positioning. The distal portion of the stent is not imaged. IMPRESSION: Fluoroscopic assistance as above. ACT 112: Negative or not required by law. The above report was generated using voice recognition software. It may contain grammatical, syntax o r spelling errors. Electronically signed by: Akhil Montgomery M.D. 07/26/2021 11:10 AM
--- NOTE | 2021-07-26 11:18 | Anesthesiology Progress Note ---
Date of Service July 26, 2021 Anesthesia Post Procedure Vital Signs Vital Signs: Temp Pulse Pulse Pulse Resp BP BP 07/26/21 11:15 73 98 H 120/70 07/26/21 11:08 36.4 C L 77 21 107/72 07/26/21 09:30 70 18 118/80 07/26/21 07:35 64 18 122/84 07/26/21 06:19 72 18 115/74 07/26/21 04:42 69 18 129/84 07/26/21 02:54 36.5 C 62 18 Pulse Ox 07/26/21 11:15 97 07/26/21 11:08 97 07/26/21 09:30 100 07/26/21 07:35 99 07/26/21 06:19 99 07/26/21 04:42 99 07/26/21 02:54 98 Pain Intensity Right Abdomen: Pain Intensity: 1 Transfer of Care Handoff Completed per policy Notes Mental Status: alert / awake / arousable Patient Amnestic to Procedure: Yes Nausea / Vomiting: adequately controlled Pain: adequately controlled Airway Patency, RR, SpO2: stable & adequate BP & HR: stable & adequate Hydration State: stable & adequate Anesthetic Complications: no major complications apparent and Pt Satisfied with anesthetic care
[2021-07-26] MEDS ORDERED: CETIRIZINE HCL 10 MG TABLET PO PRN (12:23)
[2021-07-26] MEDS ORDERED: HYDROmorphone INJ 0.5 MG/0.5 ML SYR IV PRN (12:23)
[2021-07-26] MEDS ORDERED: PROMETHAZINE HCL 12.5 MG in SODIUM CHLORIDE 0.9% 50 ML IV PRN (12:23)
[2021-07-26] MEDS ORDERED: KETOROLAC 30 MG/ML VIAL IV PRN (12:23)
[2021-07-26] MEDS ORDERED: IRON INFUSION IV SCH (12:23)
[2021-07-26] MEDS ORDERED: ACETAMINOPHEN 325 MG TAB PO PRN (12:23)
[2021-07-26] MEDS ORDERED: TAMSULOSIN HCL 0.4 MG CAP PO ONE (12:45)
--- NOTE | 2021-07-26 14:24 | Discharge Summary ---
Date of Service July 26, 2021 Admission HPI Per Admitting Provider 46-year-old female presenting to the emergency department for evaluation of extreme pain in her right side and lower abdomen. The patient states that her symptoms woke her from sleep around 1 AM. She does have vomiting because of the extreme amount of pain. The patient is usually healthy with a history of hypothyroidism. No abdominal surgical history. She has had kidney stones in the past, but this feels different. She is vaccinated against Covid. She rates her discomfort a colicky 8/10. Pt is evaluated by Dr Paulson in the ER and will take to cystoscopy 07/26/21 Principal Diagnosis right ureteral stent placement for intractable renal colic Discharge Exam The patient appeared well Vital signs as documented. Neurologic exam is alert and oriented, no focal loss of strength or sensation Psychologically is without concerns for anxiety or depression. Discharge Data Allergies Allergy/AdvReac Type Severity Reaction Status Date / Time bee venom protein (honey bee) Allergy Intermediate ANAPHYLAXIS Verified 07/26/21 07:20 Sulfa (Sulfonamide Allergy Intermediate hives Verified 07/26/21 07:20 Antibiotics) Consultations 07/26/21 07:14 ED Decision to Admit Stat 07/26/21 12:23 Consult Urology Routine Procedures Performed Operation Date: 07/26/21 13:00 Actual Procedures p Cystoscopy Right Retrograde(Right) - Phan Paulson MD s Right Ureteral Stent Insertion(Right) - Phan Paulson MD Ordered Studies 07/26/21 [place] retrograde includes kub Routine 07/26/21 04:01 CT abd pelvis wo con Urgent Hospital Course (1) Kidney stone: right renal colic with intractable pain, size of stone makes it unlikely it will pass, cystoscopy with Dr Paulson with stent placement home on Keflex, ditropan and Flomax follow up with Dr Paulson (2) Hypothyroid: resume synthroid Total Time Total Time Spent Total Time Spent (In Minutes): It required less than 30 minutes to prepare this patient for discharge Discharge Plan Discharge Items Patient Disposition: Home - Self-Care Reason For Visit: URETERAL STONE WITH HYDRO Discharge Diagnosis: right sided large kidney stone with some blocking of ureter stent placed in tube that drains right kidney Activity: Resume your previous activity Non-emergency contact: Primary Care Provider and Urologist Call non-emergency contact if: your symptoms worsen and you have a fever Follow-up/Referrals: Annamarie Mckay DO [Primary Care Provider] - hPan Paulson MD [Physician] - Diet: Regular Addtl Attending Provider Instructions: Your recent endoscopic surgery requires special post hospital care. There is no skin incision but your urinary tract is very sensitive. You may have pain in your side during urination or urinary frequency. These occur because of the ureteral stent and will resolve after the stent is removed. Drink lots of fluids! You will see blood in the urine off-and-on until the ureteral stent is removed. This is expected and normal after this procedure. When the urine turns red, limit your activities and drink plenty of fluids. It is normal to experience bladder spasms, flank pain, and blood in your urine while the stent remains. Drink plenty of fluids to ensure urine is draining. Diet You may return to your normal diet immediately. To keep your urine flowing freely and to avoid constipation, drink plenty of fluids (water, juice, milk) during the day (8 glasses). Activity Your physical activity is to be restricted, especially during the first weeks of recovery. During this time use the following guidelines: * NO lifting heavy objects (anything greater than 10 lbs) for 4 weeks. * NO driving a car and limit long car rides for 2 weeks. * NO strenuous exercise, limit stair climbing to minimum for 4 weeks. * NO severe straining during bowel movements take a laxative if necessary. * DO drink plenty of fluids to keep your urine flow brisk. (This will flush out small clots as they continue to form as part of the healing process.) * DO keep a urinal near. (You may have little warning before you need to empty your bladder. Some dribbling and poor control is normal for the first several weeks of healing.) Bowels It is important to keep your bowels regular during the post-operative period. You must keep from straining to have a bowel movement. A bowel movement every other day is reasonable. Use a mild laxative if needed and call if you are having problems. (Milk of Magnesia 2-3 Tablespoons, or 2 Dulcolax tablets for example). You may purchase from any drug store. You should resume your pre-surgery medication unless told not to. In addition you will often be given an antibiotic to prevent infection, tamsulosin to help with ureteral stent pain and stool softeners. Your urine may appear orange or reddish in color. If your pain is not severe, you may take Tylenol as directed. Problems You Should Report to Us * Fevers over 101.5 Fahrenheit. * Heavy bleeding or clots (See notes above about blood in urine). * Inability to urinate. * Drug reactions (Hives, rash, nausea, vomiting, diarrhea). * Severe burning or pain with urination that is not improving. * If you believe you are having a complication, call Dr Berg office or report to the ER Pending Studies at Discharge: No Stand-Alone Forms: My [facility] [employer], Smoking Cessation Medications and DC Order Prescriptions: New tamsulosin [Flomax] 0.4 mg capsule 0.4 mg PO DAILY Qty: 30 RF: 1 docusate sodium [Col-Rite] 100 mg capsule 100 mg PO BID Qty: 20 RF: 0 oxybutynin chloride 5 mg tablet extended release 24hr 5 mg PO DAILY Qty: 30 RF: 0 cephalexin 500 mg capsule 500 mg PO BID 3 Days Qty: 6 RF: 0 No Action cetirizine [Zyrtec] 10 mg Tablet 10 mg PO DAILY PRN (Reason: Allergy Symptoms) RF: 0 levothyroxine [Synthroid] 125 mcg tablet 125 mcg PO DAILYBB RF: 0 Multivitamin w/Minerals, Iron Tablet 1 tab PO QAM RF: 0 Iron Infusion 1 bag IV UD RF: 0 Discharge Orders: Discharge Order (Routine); Ordered 07/26/21 Ordered By: Augusto Manjarrez Admission Data Admit Date/Time: 07/26/21 12:07 Attending Provider: Augusto Manjarrez Admit Provider: Augusto Manjarrez Primary Care Provider: Annamarie Mckay Other Providers: Augusto Manjarrez ; Donavan Hair Other Interventions: Discharge Summary Assessment (RN) Last Done: 07/26/21 13:56 Coding Level of Care Code D/C DAY MANAGEMENT <30 MINS Diagnoses Kidney stone N20.0 Hypothyroid E03.9
[2021-07-26] MEDS ORDERED: CHECK SCOPOLAMINE PATCH PLACEMENT SCH (16:00)
[2021-07-26] MEDS ORDERED: TAMSULOSIN HCL 0.4 MG CAP PO SCH (21:00)
[2021-07-27] MEDS ORDERED: LEVOTHYROXINE SODIUM 125 MCG TABLET PO SCH (06:30)
[2021-07-27] MEDS ORDERED: CEROVITE ADV FORMULA TAB PO SCH (09:00)
== END 2021-07-26 14:55 | disposition home or self-care (01) | DRG 661 ==
LOC: ED 02:50 → ASU 10:10 → 3N 12:07